=== PATIENT | male | born 1935 | race Caucasian/White ===

== ENCOUNTER 2020-12-09 11:49 | Emergency (ER) | payer BC, MEDICARE ==
[2020-12-09] MEDS ORDERED: amLODIPine 10 MG Tab PO STA (12:01)
[2020-12-09] MEDS ORDERED: hydrALAZINE 20 MG/ML SDV IVPUSH STA (13:41)
[2020-12-09] MEDS ORDERED: hydrALAZINE 20 MG/ML SDV IM STA (13:53)
--- NOTE | 2020-12-09 13:57 | EDM.PDOC ---
ED HPI GENERAL MEDICAL PROBLEM - General Chief Complaint: Cardiovascular Problem Stated Complaint: HIGH BLOOD PRESSURE Time Seen by Provider: 12/09/20 11:55 Source of Information: Reports: Patient History Limitations: Reports: No Limitations - History of Present Illness INITIAL COMMENTS - FREE TEXT/NARRATIVE: Patient presented to the ED from the [facility] in clinic because of an elevated BP. He moved from [place], [place] to [place], [place] a month and ran out of his prescription medications. He is taking Lisinopril 40 mg daily and amlodipine 10 mg daily. There is no associated headache, chest pain, dyspnea. He is asymptomatic. - Related Data Allergies Allergy/AdvReac Type Severity Reaction Status Date / Time No Known Allergies Allergy Verified 12/09/20 12:04 Home Meds: Home Meds Aspirin 325 mg PO DAILY 12/09/20 [History] Calcium/Magnesium/Zinc [Qaldrzt-Dvutaenza-Pkth Tablet] 100 mg PO DAILY 12/09/20 [History] Cholecalciferol (Vitamin D3) [Vitamin D3] 150 mcg PO DAILY 12/09/20 [History] Fish Oil/[place]-3 Fatty Acids [Fish Oil 1,000 MG] 2,000 mg PO DAILY 12/09/20 [History] Garlic 1,000 mg PO DAILY 12/09/20 [History] Magnesium Citrate 100 mg PO DAILY 12/09/20 [History] Multivitamin 1 tab PO DAILY 12/09/20 [History] Potassium Gluconate [Potassium] 99 mg PO DAILY 12/09/20 [History] Vitamin B Complex 1 cap PO DAILY 12/09/20 [History] amLODIPine Besylate [Norvasc] 10 mg PO DAILY 12/09/20 [History] amLODIPine Besylate [Norvasc] 10 mg PO DAILY #30 tablet 12/09/20 [Rx] lisinopriL [Lisinopril] 40 mg PO DAILY 12/09/20 [History] lisinopriL [Lisinopril] 40 mg PO DAILY #30 tablet 12/09/20 [Rx] Past Medical History HEENT History: Reports: None Cardiovascular History: Reports: Hypertension Respiratory History: Reports: None Gastrointestinal History: Reports: None Genitourinary History: Reports: None Musculoskeletal History: Reports: None Neurological History: Reports: None Psychiatric History: Reports: None Endocrine/Metabolic History: Reports: None Hematologic History: Reports: None Immunologic History: Reports: None Oncologic (Cancer) History: Reports: None Dermatologic History: Reports: None - Past Surgical History HEENT Surgical History: Reports: None Cardiovascular Surgical History: Reports: None GI Surgical History: Reports: None Male Surgical History: Reports: None Endocrine Surgical History: Reports: None Neurological Surgical History: Reports: None Musculoskeletal Surgical History: Reports: None Dermatological Surgical History: Reports: None Social & Family History - Tobacco Use Tobacco Use Status *Q: Never Tobacco User - Caffeine Use Caffeine Use: Reports: Coffee, Soda, Tea - Recreational Drug Use Recreational Drug Use: No ED ROS GENERAL - Review of Systems Review Of Systems: See Below Constitutional: Reports: No Symptoms HEENT: Reports: No Symptoms Respiratory: Reports: No Symptoms Cardiovascular: Reports: No Symptoms Endocrine: Reports: No Symptoms GI/Abdominal: Reports: No Symptoms : Reports: No Symptoms Musculoskeletal: Reports: No Symptoms Skin: Reports: No Symptoms Neurological: Reports: No Symptoms Psychiatric: Reports: No Symptoms Hematologic/Lymphatic: Reports: No Symptoms ED EXAM, GENERAL - Physical Exam Exam: See Below Exam Limited By: No Limitations General Appearance: Alert, No Apparent Distress Eye Exam: Bilateral Eye: PERRL Ears: Normal External Exam, Normal Canal Nose: Normal Inspection, Normal Mucosa, No Blood Throat/Mouth: Normal Inspection, Normal Lips, Normal Teeth Head: Atraumatic, Normocephalic Neck: Normal Inspection, Supple, Non-Tender, Full Range of Motion Respiratory/Chest: No Respiratory Distress, Lungs Clear, Normal Breath Sounds, No Accessory Muscle Use, Chest Non-Tender Cardiovascular: Normal Peripheral Pulses, Regular Rate, Rhythm, No Edema, No Gallop, No Murmur, No Rub GI/Abdominal: Normal Bowel Sounds, Soft, Non-Tender, No Organomegaly Back Exam: Normal Inspection, Full Range of Motion Extremities: Normal Inspection, Normal Range of Motion, Non-Tender Neurological: Alert, Oriented, CN II-XII Intact, Normal Cognition, Normal Gait Psychiatric: Normal Affect #1 Interpretation EKG Date: 12/09/20 Time: 12:45 Rhythm: NSR Rate (Beats/Min): 65 [place]: Normal P-Wave: Present QRS: Normal ST-T: Depressed QT: Normal Comparison: NA - No Prior EKG EKG Interpretation Comments: NSR Prolonged ID interval T wave inversion 11,111,aVF Course - Vital Signs Text/Narrative:: Lab/EKG result was reviewed with patient Amlodipine 10 mg PO x1 Lisinopril 40 mg po x1 Hydralazine 20 mg IM Last Recorded V/S: Last Vital Signs Temp 36.8 C 12/09/20 11:50 Pulse 57 L 12/09/20 13:23 Resp 16 12/09/20 13:31 BP 167/96 H 12/09/20 14:00 Pulse Ox 98 12/09/20 12:38 - Orders/Labs/Meds Orders: Active Orders 24 hr Category Date Time Status EKG Documentation Completion [RC] ASDIRECTED Care 12/09/20 12:40 Active EKG 12 Lead [EK] Routine Ther 12/09/20 12:39 Ordered Labs: Laboratory Tests 12/09/20 12/09/20 12/09/20 Range/Units 12:55 12:55 12:55 WBC 6.1 (3.2-10.1) x10-3/uL RBC 4.81 (3.90-5.90) x10(6)uL Hgb 14.3 (12.9-17.7) g/dL Hct 43.3 (38.3-50.1) % MCV 90.0 (80.8-98.7) fL MCH 29.8 (27.0-33.3) pg MCHC 33.1 (28.7-35.3) g/dL RDW 13.7 (12.4-15.0) % Plt Count 213 (117-477) x10(3)uL MPV 8.1 (6.7-11.0) fL Neut % (Auto) 69.8 (40.3-71.8) % Lymph % (Auto) 18.3 (15.8-45.3) % [place] % (Auto) 9.1 (5.5-15.2) % Eos % (Auto) 2.0 (0.1-6.8) % Baso % (Auto) 0.8 (0.3-3.8) % Neut # (Auto) 4.3 (1.7-6.9) x10-3/uL Lymph # (Auto) 1.1 (0.5-4.5) x10-3/uL [place] # (Auto) 0.6 (0.0-1.2) x10-3/uL Eos # (Auto) 0.1 (0.0-0.6) x10-3/uL Baso # (Auto) 0.0 (0.0-0.3) x10-3/uL Sodium 141 (135-145) mmol/L Potassium 3.9 (3.5-5.3) mmol/L Chloride 105 (100-110) mmol/L Carbon Dioxide 28 (21-32) mmol/L BUN 18 (7-18) mg/dL Creatinine 1.0 (0.70-1.30) mg/dL Est Cr Clr Drug Dosing 55.97 mL/min Estimated GFR (MDRD) > 60 (>60) BUN/Creatinine Ratio 18.0 (9-20) Glucose 116 (80-116) mg/dL Calcium 8.8 (8.6-10.2) mg/dL Total Bilirubin 1.1 (0.1-1.3) mg/dL AST 17 (5-25) IU/L ALT 18 (12-36) U/L Alkaline Phosphatase 85 (56-112) IU/L Troponin I 22.2 (4.0-60.3) pg/mL Total Protein 7.3 (6.0-8.0) g/dL Albumin 3.7 (3.2-4.6) g/dL Globulin 3.6 g/dL Albumin/Globulin Ratio 1.0 TSH, Ultra Sensitive 3.08 (0.36-3.74) IU/mL Urine Color (YELLOW) Urine Appearance (CLEAR) Urine pH (5.0-6.5) Ur Specific [place] (1.010-1.025) Urine Protein (NEGATIVE) mg/dL Urine Glucose (UA) (NORMAL) mg/dL Urine Ketones (NEGATIVE) mg/dL Urine Occult Blood (NEGATIVE) Urine Nitrite (NEGATIVE) Urine Bilirubin (NEGATIVE) Urine Urobilinogen (NEGATIVE) mg/dL Ur Leukocyte Esterase (NEGATIVE) Urine RBC (0-5) Urine WBC (0-5) Ur Squamous Epith Cells (NS,R,O) Urine Bacteria (NS) 12/09/20 Range/Units 13:05 WBC (3.2-10.1) x10-3/uL RBC (3.90-5.90) x10(6)uL Hgb (12.9-17.7) g/dL Hct (38.3-50.1) % MCV (80.8-98.7) fL MCH (27.0-33.3) pg MCHC (28.7-35.3) g/dL RDW (12.4-15.0) % Plt Count (117-477) x10(3)uL MPV (6.7-11.0) fL Neut % (Auto) (40.3-71.8) % Lymph % (Auto) (15.8-45.3) % [place] % (Auto) (5.5-15.2) % Eos % (Auto) (0.1-6.8) % Baso % (Auto) (0.3-3.8) % Neut # (Auto) (1.7-6.9) x10-3/uL Lymph # (Auto) (0.5-4.5) x10-3/uL [place] # (Auto) (0.0-1.2) x10-3/uL Eos # (Auto) (0.0-0.6) x10-3/uL Baso # (Auto) (0.0-0.3) x10-3/uL Sodium (135-145) mmol/L Potassium (3.5-5.3) mmol/L Chloride (100-110) mmol/L Carbon Dioxide (21-32) mmol/L BUN (7-18) mg/dL Creatinine (0.70-1.30) mg/dL Est Cr Clr Drug Dosing mL/min Estimated GFR (MDRD) (>60) BUN/Creatinine Ratio (9-20) Glucose (80-116) mg/dL Calcium (8.6-10.2) mg/dL Total Bilirubin (0.1-1.3) mg/dL AST (5-25) IU/L ALT (12-36) U/L Alkaline Phosphatase (56-112) IU/L Troponin I (4.0-60.3) pg/mL Total Protein (6.0-8.0) g/dL Albumin (3.2-4.6) g/dL Globulin g/dL Albumin/Globulin Ratio TSH, Ultra Sensitive (0.36-3.74) IU/mL Urine Color Yellow (YELLOW) Urine Appearance Clear (CLEAR) Urine pH 7.0 H (5.0-6.5) Ur Specific [place] 1.015 (1.010-1.025) Urine Protein Negative (NEGATIVE) mg/dL Urine Glucose (UA) Normal (NORMAL) mg/dL Urine Ketones Negative (NEGATIVE) mg/dL Urine Occult Blood Negative (NEGATIVE) Urine Nitrite Negative (NEGATIVE) Urine Bilirubin Negative (NEGATIVE) Urine Urobilinogen Normal (NEGATIVE) mg/dL Ur Leukocyte Esterase Negative (NEGATIVE) Urine RBC 0-5 (0-5) Urine WBC 0-5 (0-5) Ur Squamous Epith Cells Occasional (NS,R,O) Urine Bacteria Occasional H (NS) Meds: Medications Discontinued Medications Generic Name Dose Route Start Last Admin Trade Name Freq PRN Reason Stop Dose Admin Amlodipine Besylate 10 mg 12/09/20 12:01 12/09/20 12:09 Amlodipine 10 Mg Tab PO 12/09/20 12:02 10 mg NOW STA Administration Hydralazine HCl 100 mg 12/09/20 13:41 12/09/20 13:59 Hydralazine 20 Mg/Ml Sdv IVPUSH 12/09/20 13:42 Not Given NOW STA Hydralazine HCl 20 mg 12/09/20 13:53 12/09/20 13:59 Hydralazine 20 Mg/Ml Sdv IM 12/09/20 13:54 20 mg NOW STA Administration Lisinopril 40 mg 12/09/20 12:01 12/09/20 12:16 Lisinopril 40 Mg Tab PO 12/09/20 12:02 40 mg NOW STA Administration Departure - Departure Time of Disposition: 15:05 Disposition: Home, Self-Care 01 Condition: Good Clinical Impression: Hypertensive crisis Prescriptions: lisinopriL [Lisinopril] 40 mg PO DAILY #30 tablet amLODIPine Besylate [Norvasc] 10 mg PO DAILY #30 tablet Instructions: Hypertension, Adult, [id number] Referrals: PCP,None [Primary Care Provider] - Forms: ED Department Discharge Additional Instructions: Please read discharge instructions on hypertensin Never quit taking your medicine because you can have stroke, heart attack, heart failur, kidney failure if you BP is out of control Low salt,low fat diet and exercise Start taking your lisinopril 40 mg daily and amlodipine 10 mg daily tomorrow 12/10/20 Follow up with your doctor this week Sepsis Event Note (ED) - Evaluation Sepsis Screening Result: No Definite Risk - Focused Exam Vital Signs: Vital Signs Temp Pulse Resp BP BP Pulse Ox 12/09/20 14:00 167/96 H 12/09/20 13:31 16 183/92 H 12/09/20 13:23 57 L 16 184/88 H 12/09/20 13:01 56 L 16 194/89 H 12/09/20 12:51 62 16 212/95 H 12/09/20 12:38 64 16 218/102 H 98 12/09/20 12:30 62 16 219/98 H 98 12/09/20 12:24 63 16 222/104 H 98 12/09/20 12:09 228/106 H 12/09/20 11:50 36.8 C 73 16 228/106 H 98 - My Orders Last 24 Hours: My Active Orders 12/09/20 12:39 EKG 12 Lead [EK] Routine 12/09/20 12:40 EKG Documentation Completion [RC] ASDIRECTED - Assessment/Plan Last 24 Hours: My Active Orders 12/09/20 12:39 EKG 12 Lead [EK] Routine 12/09/20 12:40 EKG Documentation Completion [RC] ASDIRECTED
== END 2020-12-09 15:15 | disposition home or self-care (01) ==
LOC: FB.ED 11:49
DX: I16.9 Hypertensive crisis, unspecified (principal); Z79.82 Long term (current) use of aspirin; Z79.899 Other long term (current) drug therapy
CPT/HCPCS: 36415; 80053; 81001; 84443; 84484; 85025; 93005; 96372; 99283-25; A9270-GY; J0360